=== PATIENT | male | born 1965 | race Caucasian/White ===

== ENCOUNTER → 2020-06-14 | Outpatient (CLI) | payer OTHER ==
[~2020-06-14] MED LIST: CELEXA 20 MG TA20 M1 PO; COUMADIN 5 MG TA5 M1; CYMBALTA60 MG PO; HYDROCODON-ACE1 EAC8 PO; LEXAPRO20 MG PO; MOBIC15 MG PO; NORCO 10-325 T1 EACH; PRILOSEC 20 MG20 MG PO; VISTARIL 25 MG25 M1; XANAX 0.5 MG0.5 M1 PO
== END ==
LOC: CAT 07:47
PROVIDERS: ATTEND Family Medicine
DX: Z13.6 Encounter for screening for cardiovascular disorders (principal); E78.00 Pure hypercholesterolemia, unspecified; I25.10 Atherosclerotic heart disease of native coronary artery without angina pectoris

== ENCOUNTER → 2020-06-14 | Outpatient (CLI) | payer OTHER | LOC: RAD 07:58 | PROVIDERS: ATTEND Family Medicine | DX: M25.552 Pain in left hip (principal) ==